=== PATIENT | female | born 1985 | race Caucasian/White ===

== ENCOUNTER 2017-03-15 12:30 | Emergency (ER) | payer MEDICARE, MEDICAID ==
[2017-03-15] MEDS ORDERED: Ondansetron ODT 4 MG TAB ONE (13:12)
== END 2017-03-15 14:43 | disposition home or self-care (01) ==
LOC: ERS 12:30
DX: R11.2 Nausea with vomiting, unspecified (principal); R19.7 Diarrhea, unspecified; F41.9 Anxiety disorder, unspecified; F41.0 Panic disorder [episodic paroxysmal anxiety]; Z79.899 Other long term (current) drug therapy; F17.290 Nicotine dependence, other tobacco product, uncomplicated
CPT/HCPCS: 87081; 87430; 99284; Q0162

== ENCOUNTER 2017-05-21 19:53 | Emergency (ER) | payer MEDICARE, MEDICAID ==
[2017-05-21] MEDS ORDERED: Ketorolac Tromethamine 60 MG/2 ML VIAL ONE (21:04)
== END 2017-05-21 21:25 | disposition home or self-care (01) ==
LOC: ERS 19:53
DX: M26.601 Right temporomandibular joint disorder, unspecified (principal); F17.290 Nicotine dependence, other tobacco product, uncomplicated; F41.9 Anxiety disorder, unspecified; Z71.6 Tobacco abuse counseling
CPT/HCPCS: 96372; 99406; J1885

== ENCOUNTER 2017-05-26 12:16 | Emergency (ER) | payer MEDICARE, MEDICAID ==
[~2017-05-26 12:16] MED LIST: ISOVUE-370 76%-LOCM 1 ML ONE
[2017-05-26 13:21] LABS: #Eosinphils 0.1 thou/uL (0.0-0.7); #Lymphocytes 1.2 thou/uL (1.20-3.40); #Monocytes 0.2 thou/uL (0.11-0.59); #Neutrophils 3.3 thou/uL (1.40-6.50); %Basophils 0.4 % (0.0-1.0); %Eosinophils 1.1 % (0.0-10.0); %Monocytes 4.5 % (0.0-10.0); Hemoglobin 10.4 g/dL (12.0-16.0); Mean Corpuscular HGB CONC 31.9 g/dL (32.0-36.0); Mean Corpuscular Hemoglobin 24.2 pg (27.0-31.0); Mean Corpuscular Volume 75.9 fl (81.0-99.0); Mean Platelet Volume 9.1 fL (7.4-10.4); Platelet Count 239 thou/uL (130-400); RBC Distribution Width 15.2 % (11.5-14.5); Red Blood Cell (RBC) Count 4.28 mill/uL (4.20-5.40); White Blood Cell (WBC) Count 4.8 thou/uL (4.8-10.8)
[2017-05-26] MEDS ORDERED: Ondansetron HCl/PF 4 MG/2 ML Vial ONE (13:32)
[2017-05-26] MEDS ORDERED: Naloxone HCl 2 mg/2 ml Syringe ONE (13:32)
[2017-05-26 13:33] LABS: Bilirubin Negative (Negative); Blood, Urine Negative (Negative); Clarity CLEAR (Clear); Glucose, Urine (Dipstick) Negative (Negative); Leukocyte Negative (Negative); Nitrite Negative (Negative); Protein, Urine (Dipstick) Negative (Neg-Trace); Specific Gravity, Urine 1.029 (1.002-1.036); Urobilinogen 0.2 mg/dL (0.2-1.0); pH, Urine 5.5 (5.0-9.0)
[2017-05-26 13:39] LABS: BHCG - Serum Negative (NEGATIVE); Pregs Control Background? CLEAR/WHITE (CLR/WHITE); Pregs Control Bar Appear? YES (CONTROL BAR)
[2017-05-26 13:41] LABS: Pregnancy Test - Urine (BHCG) Negative (Negative); Pregu Control Background? CLEAR/WHITE (CLR/WHITE); Pregu Control Bar Appear? YES (CONTROL BAR); Specific Gravity 1.029 (1.002-1.036)
[2017-05-26 13:42] LABS: Acetaminophen Less than 6.0 mcg/mL (10.0-30.0); Alcohol Less than 10 mg/dL (Less than 10)
[2017-05-26 13:44] LABS: Amphetamine Not Detected (NotDetected); Barbiturates Screen Not Detected (NotDetected); Benzodiazepine Screen Not Detected (NotDetected); Cocaine Metabolite Screen Not Detected (NotDetected); Medtox Reader # READER 1; Methadone Not Detected (NotDetected); Methamphetamine Not Detected (NotDetected); Opiate Screen Not Detected (NotDetected); Oxycodone Screen Not Detected (NotDetected); Phencyclidine (PCP) Not Detected (NotDetected); THC/Cannabinoid Screen Not Detected (NotDetected); Tricyclic Screen Detected (NotDetected)
[2017-05-26 13:44] LABS: ALT (SGPT) 11 U/L (8-55); AST (SGOT) 30 U/L (5-34); Albumin 3.7 g/dL (3.5-5.0); Alkaline Phosphatase 66 U/L (40-150); Anion Gap 14 mmol/L (10-20); BUN (Urea Nitrogen) 8 mg/dL (7.0-18.7); Bilirubin, Total Less than 0.2 mg/dL (0.2-1.2); Calc. Creatinine Clearance 0 mL/min (70-130); Calcium 8.8 mg/dL (7.8-10.44); Carbon Dioxide 20 mmol/L (22-29); Chloride 113 mmol/L (98-107); Estimated GFR-MDRD 85; Globulin 3.8 g/dL (2.4-3.5); Glucose 88 mg/dL (70-105); Potassium 4.2 mmol/L (3.5-5.1); Protein, Total 7.5 g/dL (6.0-8.3); Sodium 143 mmol/L (136-145)
[2017-05-26 13:45] LABS: Medtox Control Line Valid? VALID (VALID)
--- NOTE | 2017-05-26 14:10 | CT ---
CT BRAIN WITHOUT CONTRAST: Date: 05/26/17 HISTORY: Altered mental status. FINDINGS: No evidence of acute infarct, hemorrhage, midline shift, or abnormal extra-axial fluid collections ar e seen. The ventricular size is normal and the basilar cisterns are patent. The bony calvarium is int act. The visualized paranasal sinuses and mastoid air cells are well aerated. IMPRESSION: No CT evidence of acute intracranial process. POS: [facility]
--- NOTE | 2017-05-26 15:41 | CT ---
CT ABDOMEN AND PELVIS WITH IV CONTRAST: 05/26/17 HISTORY: Altered mental status, abdominal pain. FINDINGS: There is atelectatic change in the right middle lobe. No free air, free fluid, or lymphadenopathy see n in the abdomen or pelvis. There are postop changes in the stomach. There are changes of cholecystec joanne and bilateral tubal ligation. Uterus and ovaries are present. There is artifact which reduces the sensitivity of the exam (patient's arms on the abdomen). No defin ite abnormalities are seen in the liver, spleen, pancreas, adrenal glands and kidneys. There are dege nerative changes in the spine. No definite abnormally dilated fluid filled appendix is seen. IMPRESSION: No significant abnormalities are identified. POS: [facility]
--- NOTE | 2017-06-02 13:20 | EKG ---
Test Reason : Blood Pressure : / mmHG Vent. Rate : 060 BPM Atrial Rate : 060 BPM P-R Int : 154 ms QRS Dur : 080 ms QT Int : 426 ms P-R-T Axes : 029 049 023 degrees QTc Int : 426 ms Normal sinus rhythm with sinus arrhythmia Normal ECG Confirmed by ROMI RIVERA ([id number]), assistant film editor OLGA MASTERSON ([id number]) on 06/02/2017 1:20:23 PM Referred By: Confirmed By:ROMI RIVERA
== END 2017-05-26 18:16 | disposition home or self-care (01) ==
LOC: ERS 12:16
DX: R41.82 Altered mental status, unspecified (principal); T39.315A Adverse effect of propionic acid derivatives, initial encounter; F41.9 Anxiety disorder, unspecified; F41.0 Panic disorder [episodic paroxysmal anxiety]; F17.200 Nicotine dependence, unspecified, uncomplicated; Z79.891 Long term (current) use of opiate analgesic; Z79.899 Other long term (current) drug therapy
CPT/HCPCS: 36416; 70450; 74177; 80053; 80306; 80307; 81003; 81025; 84703; 85025; 93005; 96374; 96375; J2310; J2405

== ENCOUNTER 2017-07-17 15:18 | Emergency (ER) | payer MEDICARE, MEDICAID ==
[2017-07-17] MEDS ORDERED: Dexamethasone 4 mg/ml Vial ONE (17:05)
== END 2017-07-17 17:13 | disposition home or self-care (01) ==
LOC: ERS 15:18
DX: H65.92 Unspecified nonsuppurative otitis media, left ear (principal); F41.0 Panic disorder [episodic paroxysmal anxiety]; F17.290 Nicotine dependence, other tobacco product, uncomplicated; Z79.899 Other long term (current) drug therapy
CPT/HCPCS: 99282; J1100

== ENCOUNTER 2017-08-02 21:58 | Emergency (ER) | payer MEDICARE, MEDICAID | END 2017-08-03 00:11 | disposition home or self-care (01) | LOC: ERS 21:58 | DX: G50.0 Trigeminal neuralgia (principal); H65.92 Unspecified nonsuppurative otitis media, left ear; F41.9 Anxiety disorder, unspecified; F17.290 Nicotine dependence, other tobacco product, uncomplicated | CPT/HCPCS: 99282 ==